=== PATIENT | female | born 1995 | race Caucasian/White ===

== ENCOUNTER → 2019-12-27 | Outpatient (CLI) | payer BC | END | disposition home or self-care (01) | LOC: LAB 08:38 → LAB SHORT 08:38 | DX: N39.0 Urinary tract infection, site not specified (principal) | CPT/HCPCS: 87077; 87086; 87186 ==

== ENCOUNTER → 2020-05-16 | Outpatient (CLI) | payer BC | LOC: LAB EV 08:12 → LAB SHORT 08:12 | DX: N39.0 Urinary tract infection, site not specified (principal) | CPT/HCPCS: 87086 ==